=== PATIENT | male | born 1955 | race Caucasian/White ===

== ENCOUNTER 2016-10-22 21:00 | Emergency (ER) | payer OTHER ==
[~2016-10-22] VITALS: Ht 170.2 cm; Wt 90.7 kg
[2016-10-22] MEDS ORDERED: LISINOPRIL (21:14)
== END 2016-10-22 22:23 | disposition home or self-care (01) ==
LOC: SED 21:00
DX: L03.116 Cellulitis of left lower limb (principal); E78.5 Hyperlipidemia, unspecified
CPT/HCPCS: 99283

== ENCOUNTER 2016-11-04 13:01 | Emergency (ER) | payer OTHER ==
[~2016-11-04 13:01] MED LIST: LISINOPRIL
== END 2016-11-04 14:55 | disposition home or self-care (01) ==
LOC: SED 13:01
DX: M10.9 Gout, unspecified (principal); L03.115 Cellulitis of right lower limb; E78.5 Hyperlipidemia, unspecified; F17.210 Nicotine dependence, cigarettes, uncomplicated
CPT/HCPCS: 99283